=== PATIENT | female | born 2000 | race Asian ===

== ENCOUNTER 2019-04-23 14:40 | Emergency (ER) | payer BC, MEDICAID ==
[~2019-04-23] VITALS: Ht 172.7 cm; Wt 66.8 kg
[2019-04-23 14:52] VITALS: BP 133/86
[2019-04-23 15:04] LABS: BASOPHILS # (AUTO) 0.1 X10'3 (0-0.2); BASOPHILS % (AUTO) 0.7 % (0-1); EOSINOPHILS # (AUTO) 0.6 X10'3 (0-0.9); EOSINOPHILS % (AUTO) 6.5 % (0-6); HEMATOCRIT 43.8 % (35.0-45.0); HEMOGLOBIN 14.6 g/dl (12.0-16.0); LYMPHOCYTES # (AUTO) 3.3 X10'3 (1.1-4.8); LYMPHOCYTES % (AUTO) 34.5 % (21-51); MEAN CORPUSCULAR HEMOGLOBIN 28.1 PG (27.0-31.0); MEAN CORPUSCULAR HGB CONC 33.4 g/dL (33.0-36.5); MONOCYTES # (AUTO) 0.8 X10'3 (0-0.9); MONOCYTES % (AUTO) 8.4 % (2-12); NEUTROPHILS # (AUTO) 4.8 X10'3 (1.8-7.7); NEUTROPHILS % (AUTO) 49.9 % (42-75); PLATELET COUNT 322 X10'3 (140-440); RED BLOOD COUNT 5.21 X10'6 (4.20-5.60); RED CELL DISTRIBUTION WIDTH 13.3 % (11.5-14.5); WHITE BLOOD COUNT 9.6 X10'3 (4.5-11.0)
[2019-04-23] MEDS ORDERED: ondansetron/PF 4mg/2ml inj IV ONE (15:10)
[2019-04-23] MEDS ORDERED: normal saline 1000ML IV soln IVB ONE (15:10)
[2019-04-23 15:15] LABS: ALANINE AMINOTRANSFERASE 18 U/L (12-78); ALBUMIN 3.5 G/DL (3.4-5.0); ALBUMIN/GLOBULIN RATIO 0.7 (1.1-1.5); ALKALINE PHOSPHATASE 55 IU/L (46-116); AMYLASE 96 U/L (25-115); ANION GAP 9 (8-16); ASPARTATE AMINO TRANSFERASE 11 U/L (10-37); BILIRUBIN,TOTAL 0.3 MG/DL (0.1-1.0); BLOOD UREA NITROGEN 10 MG/DL (7-18); BUN/CREATININE RATIO 13.5 (6.6-38.0); CALCIUM 9.3 MG/DL (8.5-10.1); CHLORIDE 104 MMOL/L (99-107); CREATININE 0.74 MG/DL (0.40-0.90); GLUCOSE 86 MG/DL (70-104); LIPASE 185 U/L (73-393); POTASSIUM 3.7 MMOL/L (3.5-5.1); SODIUM 137 MMOL/L (135-145); TOTAL CARBON DIOXIDE 24.3 MMOL/L (24-32); TOTAL PROTEIN 8.6 G/DL (6.4-8.2); eGFR > 90 ML/MIN
[2019-04-23 15:20] LABS: URINE HCG NEGATIVE (NEG)
[2019-04-23 15:24] LABS: CLARITY,URINE SLIGHTLY CLOUDY (Clear); COLOR,URINE YELLOW (Yellow); GLUCOSE, URINE NEGATIVE (Neg); KETONES,URINE NEGATIVE (Neg); LEUKOCYTE ESTERASE ,URINE MODERATE (Neg); NITRITES, URINE NEGATIVE (Neg); OCCULT BLOOD,URINE NEGATIVE (Neg); PROTEIN,URINE NEGATIVE (Neg); UROBILINOGEN,URINE 0.2 E.U/dL (0.2-1.0)
[2019-04-23 15:30] LABS: UA COLLECTION TYPE CLN CATCH MIDSTREAM
[2019-04-23 15:31] LABS: BACTERIA,URINE 2+ /HPF (Neg); MUCUS STRANDS NONE SEEN /LPF (Neg); RBC,URINE NONE SEEN /HPF (0-2); SQUAMOUS EPITHELIAL CELL,UR MODERATE /LPF (FEW)
== END 2019-04-23 15:53 | disposition home or self-care (01) ==
LOC: ER 14:42
DX: R10.32 Left lower quadrant pain (principal); R10.31 Right lower quadrant pain; R11.2 Nausea with vomiting, unspecified; R19.7 Diarrhea, unspecified
CPT/HCPCS: 36415; 80053; 81001; 81025; 82150; 83690; 85025; 85610; 87088; 96361; 96374; 99283; J2405; J7030

== ENCOUNTER 2019-09-27 13:50 | Emergency (ER) | payer MEDICAID ==
[~2019-09-27] VITALS: Ht 172.7 cm; Wt 68.2 kg
[2019-09-27] MEDS ORDERED: BENZ-16 PO (14:22)
[2019-09-27] MEDS ORDERED: GUAI120L55 PO (14:22)
[2019-09-27 14:26] VITALS: BP 130/80
== END 2019-09-27 14:32 | disposition home or self-care (01) ==
LOC: ER 13:50
DX: J06.9 Acute upper respiratory infection, unspecified (principal); Z79.899 Other long term (current) drug therapy
CPT/HCPCS: 99283

== ENCOUNTER 2019-12-13 13:00 | Emergency (ER) | payer MEDICAID ==
[~2019-12-13] VITALS: Ht 170.2 cm; Wt 68.2 kg
[~2019-12-13 13:00] MED LIST: GUAI120L55 PO
[2019-12-13 13:24] VITALS: BP 145/94
== END 2019-12-13 13:34 | disposition home or self-care (01) ==
LOC: ER 13:01
DX: J06.9 Acute upper respiratory infection, unspecified (principal); Z79.899 Other long term (current) drug therapy
CPT/HCPCS: 99281

== ENCOUNTER 2020-07-15 10:29 | Emergency (ER) | payer MEDICAID ==
[~2020-07-15] VITALS: Ht 172.7 cm; Wt 71.4 kg
[2020-07-15 11:48] LABS: URINE HCG NEGATIVE (NEG)
--- NOTE | 2020-07-15 12:06 | NUR ---
Patient resting comfortably
[2020-07-15 12:14] VITALS: BP 124/74
== END 2020-07-15 12:17 | disposition home or self-care (01) ==
LOC: ER 10:30
DX: N93.8 Other specified abnormal uterine and vaginal bleeding (principal); M54.89 Other dorsalgia; Z79.899 Other long term (current) drug therapy
CPT/HCPCS: 81025; 99283

== ENCOUNTER 2021-08-01 19:29 | Emergency (ER) | payer BC, MEDICAID ==
[~2021-08-01] VITALS: Ht 172.7 cm; Wt 72.7 kg
[2021-08-01 19:53] VITALS: BP 122/87
[2021-08-01] MEDS ORDERED: ketorolac tromethamine 15mg/ml inj. IM ONE (20:15)
[2021-08-01] MEDS ORDERED: IBUP-1984 PO (21:10)
[2021-08-01] MEDS: ondansetron 4mg rapidly disintigrating tab PO ONE ×2 (21:16→21:21)
[2021-08-01] MEDS: HYDROcodone/acetaminophen 5mg/325mg tablet PO ONE ×2 (21:16→21:21)
== END 2021-08-01 21:47 | disposition home or self-care (01) ==
LOC: ER 19:29
DX: M25.561 Pain in right knee (principal); X58.XXXA Exposure to other specified factors, initial encounter; Y93.89 Activity, other specified; Y92.89 Other specified places as the place of occurrence of the external cause; Y99.8 Other external cause status
CPT/HCPCS: 29505; 73564; 96372; 99283; J1885